=== PATIENT | male | born 1990 | race Caucasian/White ===

== ENCOUNTER 2024-05-28 14:00 | Emergency (ER) | payer OTHER ==
[2024-05-28] MEDS: Diazepam 2 MG Tab PO STA (14:47)
== END 2024-05-28 16:30 | disposition home or self-care (01) ==
LOC: MW.ED 14:00
DX: S46.211A Strain of muscle, fascia and tendon of other parts of biceps, right arm, initial encounter (principal); I10 Essential (primary) hypertension; Z75.8 Other problems related to medical facilities and other health care; X58.XXXA Exposure to other specified factors, initial encounter
CPT/HCPCS: 73030; 73080; 99283; A9270